=== PATIENT | male | born 1995 | race Caucasian/White ===

== ENCOUNTER 2018-04-15 07:27 | Emergency (ER) | payer OTHER ==
[~2018-04-15] VITALS: Ht 182.9 cm; Wt 62.3 kg
[2018-04-15 07:30] VITALS: BP 137/97; PULSE 88; RESP 18; TEMP 97.4; O2SAT 98
[2018-04-15] MEDS ORDERED: OXYM20TA PO (07:42)
[2018-04-15] MEDS ORDERED: OXYMTAB2 PO (07:42)
[2018-04-15] MEDS ORDERED: HYDR-3288 PO (08:10)
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
== END 2018-04-15 08:22 | disposition home or self-care (01) ==
LOC: PHED 07:27
DX: M54.5 Low back pain (principal); G89.29 Other chronic pain; F17.290 Nicotine dependence, other tobacco product, uncomplicated
CPT/HCPCS: 99281